=== PATIENT | female | born 1990 ===

== ENCOUNTER 2022-11-19 06:37 | Day surgery (SDC) | payer OTHER ==
[2022-11-17 12:38] LABS: CARBON DIOXIDE,CO2 27.7 mmol/L (21.0-32.0); POTASSIUM,K 3.5 mmol/L (3.5-5.1)
[~2022-11-19 06:37] MED LIST: Lactated Ringers 1,000 ML IV SCH; Sodium Chloride 0.9% 10 ML Syringe FLUSH PRN; Sodium Chloride 0.9% 2.5 ML Syringe FLUSH PRN; Sodium Chloride 0.9% 20 ML SDV IV PRN; ceFAZolin 1 GM in Premix Bag 1 BAG IV ONE
[2022-11-19] MEDS ORDERED: Metoclopramide 10 MG/2 ML SDV IVPUSH PRN (06:57)
[2022-11-19] MEDS ORDERED: HYDROmorphone 1 MG/ML Syringe IVPUSH PRN (06:57)
[2022-11-19] MEDS ORDERED: fentaNYL 50 MCG/ML SDV IVPUSH PRN (06:57)
[2022-11-19] MEDS ORDERED: Albuterol 0.083% 2.5 MG/3 ML Neb Soln NEB PRN (06:57)
[2022-11-19] MEDS ORDERED: Morphine 2 MG/ML SYRINGE IVPUSH PRN (06:57)
[2022-11-19] MEDS ORDERED: Naloxone 0.4 MG/ML SDV IVPUSH PRN (06:57)
[2022-11-19] MEDS ORDERED: Ondansetron 4 MG/2 ML SDV IVPUSH PRN ×2 (06:57→09:15)
[2022-11-19] MEDS ORDERED: fentaNYL 250 MCG/5 ML SDV ONE ×2 (07:31→08:28)
[2022-11-19] MEDS ORDERED: propofoL 100 ML ONE (07:31)
[2022-11-19] MEDS ORDERED: Dexmedetomidine 200 MCG/2 ML SDV ONE ×2 (07:36→07:40)
[2022-11-19] MEDS ORDERED: Dexamethasone 4 MG/ML 5 ML MDV ONE (07:36)
[2022-11-19] MEDS ORDERED: Ketorolac 30 MG/ML SDV ONE (07:36)
[2022-11-19] MEDS ORDERED: Rocuronium Bromide 50 MG/5 ML Syringe ONE ×2 (07:36→07:37)
[2022-11-19] MEDS ORDERED: Ondansetron 4 MG/2 ML SDV ONE (07:36)
[2022-11-19] MEDS ORDERED: Lidocaine 2% 5 ML SDV ONE (07:36)
[2022-11-19] MEDS ORDERED: Sugammadex Sodium 200 MG/2 ML VIAL ONE (07:36)
[2022-11-19] MEDS ORDERED: Fluorescein 5 ML Vial ONE (07:36)
[2022-11-19] MEDS ORDERED: Magnesium Sulfate (4.06 MEQ/ML) 5 GM/10 ML SDV ONE (07:36)
[2022-11-19] MEDS ORDERED: Ropivacaine 0.5% 5 MG/ML 30 ML SDV ONE (07:38)
[2022-11-19] MEDS ORDERED: fentaNYL 100 MCG/2 ML SDV ONE (07:38)
[2022-11-19] MEDS ORDERED: Famotidine 20 MG/2 ML SDV ONE (07:38)
[2022-11-19] MEDS ORDERED: Water For Injection, Sterile 20 ML ONE (07:41)
[2022-11-19] MEDS ORDERED: ceFAZolin 1 GM Vial ONE (08:07)
[2022-11-19] MEDS ORDERED: Ketamine 500 mg/10 ML MDV ONE (08:16)
[2022-11-19] MEDS ORDERED: Atropine 1 MG/ML SDV ONE (08:39)
[2022-11-19] MEDS ORDERED: Glycopyrrolate 0.2 MG/ML SDV ONE (08:39)
[2022-11-19] MEDS ORDERED: Morphine 4 MG/ML Syringe IVPUSH PRN (09:15)
[2022-11-19] MEDS ORDERED: Ketorolac 30 MG/ML SDV IVPUSH ONE (09:15)
[2022-11-19] MEDS ORDERED: Promethazine 25 MG/ML SDV IM PRN (09:15)
[2022-11-19] MEDS ORDERED: Acetaminophen/oxyCODONE 325-5 MG Tab PO PRN ×2 (09:15)
[2022-11-19] MEDS ORDERED: Ketorolac 30 MG/ML SDV IVPUSH PRN (13:30)
== END 2022-11-19 14:20 | disposition home or self-care (01) ==
LOC: MW.SDS 06:37
PROVIDERS: ATTEND Obstetrics & Gynecology
DX: N80.03 Adenomyosis of the uterus (principal); N72 Inflammatory disease of cervix uteri; N83.8 Other noninflammatory disorders of ovary, fallopian tube and broad ligament; G43.909 Migraine, unspecified, not intractable, without status migrainosus; Z79.899 Other long term (current) drug therapy; Z87.891 Personal history of nicotine dependence; Z88.8 Allergy status to other drugs, medicaments and biological substances; Z88.1 Allergy status to other antibiotic agents; Z91.040 Latex allergy status
CPT/HCPCS: 36415; 58571; 80048; 84703; 85027; 86850; 86900; 86901; J0131; J0461; J0690; J1100; J2704; J2795; J3010; J3475; J3490; J7030; J7120; 00840; 64488; J1885; J2405